=== PATIENT | female | born 1975 | race American Indian/Alaskan Native ===

== ENCOUNTER 2021-12-11 02:46 | Emergency (ER) | payer SELFPAY ==
[2021-12-11] MEDS ORDERED: ASPIRIN 325 MG TAB PO ONE (02:59)
--- NOTE | 2021-12-11 03:27 | XRay Report ---
CHEST PA AND LATERAL VIEWS INDICATION: palpitations. COMPARISON: None. FINDINGS: Support devices: None. Heart: Within normal limits. Lungs/Pleura: No acute pulmonary or pleural findings. IMPRESSION: 1. No acute findings. Signer Name: Luis Garcia MD Signed: 12/11/2021 3:23 AM Workstation Name: [id number]
--- NOTE | 2021-12-11 04:09 | Emergency Department Report ---
ED Palpitations HPI - General Chief Complaint: Arrhythmia/Palpitations Stated Complaint: CHEST PAIN Source: patient, family Mode of arrival: Ambulatory Limitations: No Limitations - History of Present Illness Initial Comments: Patient is a 46-year-old -[place] female with a history of chronic iron deficiency anemia, CAD s/p GA in 2019, anxiety and depression who presented to the ED with complaint of acute onset persistent heart palpitations and elevated heart rate after smoking marijuana about 1 hour ago. Patient stated that her symptoms have since resolved but she came to the ED for evaluation. Patient states that she usually does not smoke marijuana but because of family stress she decided to smoke marijuana to relieve her stress. Patient states that she then developed palpitations and elevated heart rate. Patient denies drinking coffee or using any high energy drinks. Patient denies chest pain, dizziness, syncope, seizures, shortness of breath, nausea and vomiting, headache, diaphoresis, cough, fever, chills, abdominal pain, or change in vision and lightheadedness. MD Complaint: rapid heart beat, "heart racing" (after smoking canabis) -: Sudden, hour(s) (1) Context: occured during rest, other (occured after smoking canabis) Arrythmia History: other (CAD s/p GA in 2019) Associated Symptoms: denies other symptoms, anxiety. denies: shortness of breath, syncope, near-syncope, nausea/vomiting, diaphoresis, cough, parast hesias, feeling of impending doom, muscle cramps, other - Related Data Allergies Allergy/AdvReac Type Severity Reaction Status Date / Time No Known Allergies Allergy Verified 12/11/21 02:50 ED Review of Systems ROS: Stated complaint: CHEST PAIN Other details as noted in HPI Constitutional: denies: chills, fever Eyes: denies: eye pain, eye discharge, vision change ENT: denies: ear pain, throat pain Respiratory: denies: cough, shortness of breath, wheezing Cardiovascular: palpitations (after smoking marijuana). denies: chest pain Endocrine: no symptoms reported Gastrointestinal: denies: abdominal pain, nausea, diarrhea Genitourinary: denies: urgency, dysuria, discharge Musculoskeletal: denies: back pain, joint swelling, arthralgia Skin: denies: rash, lesions Neurological: denies: headache, weakness, paresthesias Psychiatric: anxiety. denies: depression Hematological/Lymphatic: denies: easy bleeding, easy bruising ED Past Medical Hx - Past Medical History Previous Medical History?: Yes Hx Heart Attack/AMI: Yes (2019) - Surgical History Past Surgical History?: Yes Additional Surgical History: Tubal ED Physical Exam - General Limitations: No Limitations General appearance: alert, in no apparent distress - Head Head exam: Present: atraumatic, normocephalic, normal inspection - Eye Eye exam: Present: normal appearance, PERRL, EOMI Pupils: Present: normal accommodation - ENT ENT exam: Present: normal exam, normal orophraynx, mucous membranes moist, TM's normal bilaterally, normal external ear exam - Neck Neck exam: Present: normal inspection, full ROM - Respiratory Respiratory exam: Present: normal lung sounds bilaterally. Absent: respiratory distress, wheezes, rhonchi, stridor, chest wall tenderness, decreased breath sounds, other - Cardiovascular Cardiovascular Exam: Present: regular rate, normal rhythm, normal heart sounds. Absent: systolic murmur, diastolic murmur, rubs, gallop - GI/Abdominal GI/Abdominal exam: Present: soft, normal bowel sounds. Absent: tenderness, guarding, rebound, hyperactive bowel sounds, hypoactive bowel sounds, organomegaly - Extremities Exam Extremities exam: Present: normal inspection, full ROM, normal capillary refill. Absent: tenderness - Back Exam Back exam: Present: normal inspection, full ROM. Absent: tenderness, CVA tenderness (R), CVA tenderness (L), muscle spasm, paraspinal tenderness - Neurological Exam Neurological exam: Present: alert, oriented X3, CN II-XII intact, normal gait, reflexes normal - Psychiatric Psychiatric exam: Present: normal affect, normal mood, anxious - Skin Skin exam: Present: warm, dry, intact, normal color. Absent: rash ED Course Vital Signs 12/11/21 02:51 Temperature 98.4 F Pulse Rate 87 Respiratory 16 Rate Blood Pressure 136/47 [Right] O2 Sat by Pulse 100 Oximetry ED Medical Decision Making - Lab Data Result diagrams: 12/11/21 03:18 12/11/21 03:18 - EKG Data EKG shows normal: sinus rhythm Rate: normal - EKG Data Interpretation: normal EKG 12/11/21 05:33 EKG shows normal sinus rhythm with a ventricular rate of [address] or T wave abnormalities or pathological Q waves. - Radiology Data Radiology results: report reviewed, image reviewed [facility] [address] [place] [address] XRay Report Signed Patient: YOLANDA ZABALA MR#: [id number] : 1975 Acct:[id number] Age/Sex: 46 / F ADM Date: 12/11/21 Loc: ED Attending Dr: Ordering Physician: JAY JAY DOMINGUEZ MD Date of Service: 12/11/21 Procedure(s): XR chest routine 2V Accession Number(s): [id number] cc: ED MD ANGELICA Fluoro Time In Minutes: CHEST PA AND LATERAL VIEWS INDICATION: palpitations. COMPARISON: None. FINDINGS: Support devices: None. Heart: Within normal limits. Lungs/Pleura: No acute pulmonary or pleural findings. IMPRESSION: 1. No acute findings. Signer Name: Luis Garcia MD Signed: 12/11/2021 3:23 AM Workstation Name: [id number] Transcribed By: MARYLOU Dictated By: Luis Garcia MD Electronically Authenticated By: Luis Garcia MD Signed Date/Time: 12/11/21322 DD/ 2 TD/TT: - Medical Decision Making This is a 46-year-old -[place] female with a history of chronic iron deficiency anemia, CAD s/p GA in 2019, anxiety and depression who presented to the ED with complaint of acute onset persistent heart palpitations and elevated heart rate after smoking marijuana about 1 hour ago. Patient stated that her symptoms have since resolved but she came to the ED for evaluation. Patient states that she usually does not smoke marijuana but because of family stress she decided to smoke marijuana to relieve her stress. Patient states that she then developed palpitations and elevated heart rate. Patient denies drinking coffee or using any high energy drinks. In the ED, patient is alert and oriented x3 and is not in any distress, anxious, cries during the physical exam because of family stress. Chest x-ray showed no acute cardiopulmonary abnormalities or pneumonitis. EKG shows normal sinus rhythm with a ventricular rate of [address] or T wave abnormalities or pathological Q waves. All lab test results were reviewed and are all nonactionable except for mild hypokalemia of 3.2 mmol/L, the initial troponin level and 2-hour repeat troponin was unremarkable. Patient was therefore discharged home and advised to follow- up with her primary care physician in 5 to 7 days for reevaluation. Patient was also advised to follow-up with the project controls specialist on-call Dr. Cordova in 3 to 5 days for reevaluation. Patient was advised to control Dr. Cordova's office xu yadav in the morning on Saturday, December 11, 2021 to schedule a follow-up appointment with the project controls specialist. Patient was also encouraged to stop using marijuana. Patient verbalized understanding and promised to abstain. Patient was advised return to the ED immediately if symptoms get worse. - Differential Diagnosis Anxiety; drug abuse; CAD; Arrhythmia; PE; Pneumonia Critical care attestation.: If time is entered above; I have spent that time in minutes in the direct care of this critically ill patient, excluding procedure time. ED Disposition Clinical Impression: Anxiety as acute reaction to exceptional stress, Rapid palpitations, Marijuana smoker, episodic Disposition: 01 HOME / SELF CARE / HOMELESS Is pt being admited?: No Does the pt Need Aspirin: No Condition: Stable Instructions: Generalized Anxiety Disorder, Adult, Cannabis Use Disorder, Palpitations, [id number] Additional Instructions: All lab test results were reviewed and are all nonactionable except for mild hypokalemia. Chest x-ray showed no acute cardiopulmonary abnormalities or pneumonitis. EKG showed normal sinus rhythm with a ventricular rate of [address] or T wave abnormalities. Your symptoms are likely due to cannabis abuse that elicited tachycardia and palpitations. Therefore ensure that you abstain from cannabis use, take your regular medications and follow-up with the project controls specialist in 3 to 5 days for reevaluation. Contact his office lillian andrews thing in the morning on Saturday, December 11, 2021 to schedule a follow-up appointment. Ensure that you follow-up with your primary care physician in 5 to 7 days for reevaluation or return to the ED immediately if symptoms get worse. Referrals: [facility] [Provider Group] - 3-5 Days SEVEN CORDOVA MD [Staff Physician] - 3-5 Days Time of Disposition: 05:36 Print Language: ITALIAN
[2021-12-11 04:10] LABS: Alanine Aminotransferase 6 units/L (7-56); Albumin 4.3 g/dL (3.9-5); BUN/Creatinine Ratio 10; Blood Urea Nitrogen 9 mg/dL (7-17); Calcium 9.1 mg/dL (8.4-10.2); Hemolysis Index 6
[2021-12-11 04:17] LABS: Basophils % (Auto) 0.3 % (0.0-1.8); Eosinophils % (Auto) 0.1 % (0.0-4.3); Hematocrit 27.8 % (30.3-42.9); Hemoglobin 8.4 gm/dl (10.1-14.3); Lymphocytes # (Auto) 1.5 K/mm3 (1.2-5.4); Lymphocytes % (Auto) 23.9 % (13.4-35.0); Mean Corpuscular HGB Conc 30 % (30-34); Monocytes # (Auto) 0.6 K/mm3 (0.0-0.8); Monocytes % (Auto) 9.9 % (0.0-7.3); Platelet Count 279 K/mm3 (140-440); Red Blood Count 4.15 M/mm3 (3.65-5.03); Red Cell Distribution Width 18.6 % (13.2-15.2)
[2021-12-11] MEDS ORDERED: POTASSIUM CHLORIDE ER 20 MEQ TAB PO ONE (04:17)
[2021-12-11 04:22] LABS: Mean Corpuscular Volume 67 fl (79-97)
[2021-12-11 06:04] VITALS: BP 130/72
--- NOTE | 2021-12-11 12:34 | Electrocardiograph Report ---
[facility] Test Date: 2021-12-11 Test Time: 03:23:00 Pat Name: YOLANDA ZABALA Department: Room: Gender: F [employer]: BAYLEE : 1975 Requested By: AGUSTO WOODRUFF Order Number: [id number] Reading MD: Tina Davis Measurements Intervals [place] Rate: 80 P: 64 AR: 176 QRS: 32 QRSD: 83 T: 36 QT: 394 QTc: 456 Interpretive Statements Sinus rhythm Probable left atrial enlargement Poor R wave progression No previous ECG available for comparison Electronically Signed On 12-11-2021 12:34:17 EST by Tina Davis
== END 2021-12-11 06:04 | disposition home or self-care (01) ==
LOC: ED 02:46
DX: F41.1 Generalized anxiety disorder (principal); F43.0 Acute stress reaction; R00.2 Palpitations; F12.90 Cannabis use, unspecified, uncomplicated
CPT/HCPCS: 36415; 71046; 80053; 84484; 85025; 93005; 93010; 99284